=== PATIENT | male | born 1980 | race Caucasian/White ===

== ENCOUNTER 2020-06-16 07:54 | Emergency (ER) | payer SELFPAY ==
[~2020-06-16] VITALS: Ht 185.4 cm; Wt 84.0 kg
[2020-06-16 09:10] VITALS: BP 143/83
[2020-06-16] MEDS ORDERED: METH4TAB2 PO (09:22)
--- NOTE | 2020-06-16 09:22 | ED.ADGEN ---
Past Medical History Past Medical History: Anxiety, Bipolar Past Surgical History: No Surgical History Smoking Status: Current Every Day Smoker Alcohol Use: None General Adult EDM: Chief Complaint: ANXIETY/PANIC ATTACK HPI: HPI: Patient is a 40-year-old male who presents to the emergency room complaining of anxiety, chest tightness. He was diagnosed with coronavirus 2 weeks ago and states that his symptoms got completely better. He then started feeling bad again yesterday. He had some minor congestion at that time. He denies any chest pain. He states he does not need anything for pain or any kind of testing. He would like a repeat coronavirus test. He had a chest x-ray done at [facility] yesterday that was normal. He denies any fever. He is a smoker for over 20 years. Review of Systems: Review of Systems: General: Denies fever, chills, sweats, fatigue Eyes: Denies drainage, blurred vision, eye redness HENT: Denies rhinorrhea, sore throat, earache Respiratory: Denies cough, wheezing. Reports shortness of breath, tightness Cardiac: Denies edema, palpitations, chest pain GI: Denies abdominal pain, Nausea, vomiting MSK: Denies back pain, neck pain Skin: Denies rash, jaundice Neuro: Denies headache, dizziness Psychiatric: Denies SI/HI Current Medications: Current Medications Medications (Trade) Dose Ordered Sig/Jeremias Start Time Stop Time Status Last Admin Dose Admin Aspirin (Constanza Aspirin) 325 mg 1X ONCE 06/16/20 09:30 06/16/20 09:31 DC 06/16/20 09:38 325 MG Allergies: Allergies: Allergies Coded Allergies Type Severity Reaction Last Updated Verified No Known Drug Allergies 06/16/20 No Physical Exam: PE: General: Awake, alert, NAD. Well Nourished, well hydrated. Cooperative HEENT: Atraumatic, EOMI, PERRL, airway patent, moist oral mucosa Neck: Supple, trachea midline Respiratory: CTA bilaterally, normal effort, no wheezing/crackles CV: RRR, no murmur, cap refill <2 GI: Soft, nondistended, nontender, no masses MSK: No obvious deformities Skin: Warm, dry, intact Neuro: A&O x3, speech NL, sensory and motor grossly intact, no focal deficits Psych: Normal affect, normal mood, not suicidal or homicidal Current Patient Data: Vital Signs: Vital Signs Date Time Temp Pulse Resp B/P (MAP) Pulse Ox O2 Delivery O2 Flow Rate FiO2 06/16/20 08:00 97.9 85 16 141/89 (106) 100 Room Air 97.9 EKG: EKG: [] Heart Score: Risk Factors: Risk Factors: DM, Current or recent (<one month) smoker, HTN, HLP, family history of CAD, obesity. Risk Scores: Score 0 - 3: 2.5% MACE over next 6 weeks - Discharge Home Score 4 - 6: 20.3% MACE over next 6 weeks - Admit for Clinical Observation Score 7 - 10: 72.7% MACE over next 6 weeks - Early Invasive Strategies Radiology/Procedures: Radiology/Procedures: [] Course & Med Decision Making: Course & Med Decision Making Pertinent Labs and Imaging studies reviewed. (See chart for details) Patient is a 40 stoic gentleman who presents to the emergency room stating that he has some mild chest tightness that started yesterday. He would like a repeat coronavirus test which was done here in the emergency room. He had chest x-ray done yesterday and an EKG that were normal. Pain is unchanged from none. He states he does not really want a lot of treatment. We will place him on rhonda roids is likely he is developing COPD given his long-term tobacco abuse. I have discussed with him that if his pain gets any worse, he is shortness of breath with any kind of exertion, or he has any other concerns he is to return to the emergency room. Patient's test results and vitals while in the ED were fully reviewed and discussed with the patient. Patient is stable and at this time does not need admission to the hospital. We have discussed strict return precautions and the importance of following up with their Primary Care Physician. Patient stated understanding and was given an opportunity to ask any questions. Patient is in agreement with plan. Mayi Disclaimer: Mayi Disclaimer: This electronic medical record was generated, in whole or in part, using a voice recognition dictation system. Departure Departure Impression: Primary Impression: Chest tightness Additional Impression: Coronavirus infection Disposition: 01 DC HOME SELF CARE/HOMELESS Condition: STABLE Patient Instructions: Shortness of Breath Scripts Methylprednisolone (MEDROL) 4 Mg Tab.ds.pk 1 PKG PO UD for inflammation, #1 PKG Prov: BARBI CLINE MD 06/16/20 Problem Qualifiers BARBI CLINE MD Jun 16, 2020 09:22
[2020-06-16] MEDS ORDERED: ASPIRIN 325 MG TABLET PO ONE (09:30)
--- NOTE | 2020-06-16 11:58 | NUR ---
BOB contacted by ER stating pt trying to return to his COVID room at the [facility] hot. BOB called the locks tender and spoke with Gerber ([phone]) about returning. Gerber stated that pt asked her to call 911 as he was up all night asking hotel staff to come in and check on him as he thought people were coming through his [place]var[place] to attack him. Pt a/o x4 in the ER with no auditory or visual hallucinations. Dominic the onsite health coach with the hotel ([phone]) will call the ER and coordinate with Marija to make the determination if they are able to accept pt back. Pt re-swabbed and his COVID positive. [facility] [address] [place] [id number]
[2020-06-18] MEDS ORDERED: Nicotine 21MG TD (15:36)
[2020-06-18] MEDS ORDERED: NICO2GUM42 BC (15:36)
[2020-06-18] MEDS ORDERED: FLUT16SP NS (15:36)
== END 2020-06-16 09:40 | disposition home or self-care (01) ==
LOC: ER 07:54
DX: R07.89 Other chest pain (principal); Z20.828 Contact with and (suspected) exposure to other viral communicable diseases; F41.9 Anxiety disorder, unspecified; F31.9 Bipolar disorder, unspecified; F17.200 Nicotine dependence, unspecified, uncomplicated
CPT/HCPCS: 99283; C9803; U0003